=== PATIENT | female | born 2000 | race American Indian/Alaskan Native ===

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

== ENCOUNTER 2022-04-10 00:06 | Emergency (ER) | payer SELFPAY ==
[2022-04-10 00:55] VITALS: BP 158/82
--- NOTE | 2022-04-10 01:18 | Emergency Department Report ---
ED General Adult HPI - General Chief complaint: Psych Stated complaint: I am fine, I do not need to be be here Time Seen by Provider: 04/10/22 00:47 Source: patient, EMS ( EMS documentation not available at time of chart dictation ), RN notes reviewed Mode of arrival: Stretcher Limitations: No Limitations - History of Present Illness Initial comments: The patient was evaluated in the emergency department for symptoms described in the history of present illness. He/she was evaluated in the context of the global COVID-19 pandemic, which necessitated consideration that the patient might be at risk for infection with the virus that causes COVID-19. Institutional protocols and algorithms that pertain to the evaluation of patients at risk for COVID-19 are in a state of rapid change based on information released by regulatory bodies including the CDC and federal and state organizations. These policies and algorithms were followed during the patient's care in the emergency department. Please note that these policies, procedures and recommendations changed on a rapid basis. This patient is a cooperative 22-year-old female with a history of bipolar disorder, who states that she is not . The patient reports that earlier on today, she was evaluated by police department, for legal reasons, and she reports that she did not want to go to custodial. She reports that she started to hit her head on the car, essentially to avoid custodial. She is not homicidal or suicidal. She has not tried to overdose on anything. She is not experiencing hallucinations, and she does not have access to guns or firearms. She reports that she is not currently taking any antipsychotic medications. She denies physical pain at this time. She denies COVID symptoms. Please department called EMS, who then brought the patient here. The patient is not interested currently in speaking to a therapist or psychiatrist. She lives at home with family, and reports she can safely get home to family. She is asking to be discharged. -: Sudden Consistency: now resolved Improves with: none Worsens with: none Associated Symptoms: denies other symptoms - Related Data Previous Rx's Medication Instructions Recorded Last Taken Type QUEtiapine [SEROquel] 25 mg PO BID 30 Days #60 tablet 06/14/21 Unknown Rx levoFLOXacin [Levaquin TAB] 500 mg PO QDAY #10 tablet 06/14/21 Unknown Rx Allergies Allergy/AdvReac Type Severity Reaction Status Date / Time No Known Allergies Allergy Unverified 06/13/21 12:20 ED Review of Systems ROS: Stated complaint: CONTUSION TO FOREHEAD,SI Other details as noted in HPI Comment: All other systems reviewed and negative Psychiatric: anxiety. denies: auditory hallucinations, visual hallucinations, homicidal thoughts, suicidal thoughts ED Past Medical Hx - Past Medical History Previous Medical History?: Yes Hx Psychiatric Treatment: Yes (Schizophrenia, Depression) - Surgical History Past Surgical History?: No - Social History Smoking Status: Never Smoker Substance Use Type: Marijuana - Medications Home Medications: Home Medications Medication Instructions Recorded Confirmed Last Taken Type QUEtiapine [SEROquel] 25 mg PO BID 30 Days #60 tablet 06/14/21 Unknown Rx levoFLOXacin [Levaquin TAB] 500 mg PO QDAY #10 tablet 06/14/21 Unknown Rx ED Physical Exam - General Limitations: No Limitations General appearance: alert, anxious - Head Head exam: Present: normocephalic, other (Superficial forehead contusion noted) - Eye Eye exam: Present: normal appearance, EOMI - ENT ENT exam: Present: normal exam, normal orophraynx, mucous membranes moist, normal external ear exam - Neck Neck exam: Present: normal inspection, full ROM. Absent: tenderness, meningismus - Respiratory Respiratory exam: Present: normal lung sounds bilaterally. Absent: respiratory distress, wheezes, rales, rhonchi, stridor, decreased breath sounds - Cardiovascular Cardiovascular Exam: Present: regular rate, normal rhythm, normal heart sounds. Absent: bradycardia, tachycardia, irregular rhythm, systolic murmur, diastolic murmur, rubs, gallop - GI/Abdominal GI/Abdominal exam: Present: soft. Absent: distended, tenderness, guarding, rebound, rigid, pulsatile mass - Extremities Exam Extremities exam: Present: normal inspection, full ROM, other (2+ pulses noted in the bilateral upper and lower extremities. There is no palpable cord. negative Homans sign. Muscular compartments are soft. The pelvis is stable.). Absent: pedal edema, calf tenderness - Back Exam Back exam: Present: normal inspection, full ROM. Absent: tenderness, CVA tende rness (R), CVA tenderness (L), paraspinal tenderness, vertebral tenderness - Neurological Exam Neurological exam: Present: alert, oriented X3, normal gait, other (No facial droop. Tongue midline. Extraocular movements intact bilaterally. Facial sensation intact to light touch in V1, V2, V3 distribution bilaterally. 5 and a 5 strength in 4 extremities. Sensation intact to light touch in 4 extremities.). Absent: motor sensory deficit - Psychiatric Psychiatric exam: Present: anxious. Absent: depressed, flat affect, manic, homicidal ideation, suicidal ideation - Skin Skin exam: Present: warm, dry, abrasion ED Course Vital Signs 04/10/22 00:08 Temperature 98.9 F Pulse Rate 98 H Respiratory 18 Rate Blood Pressure 158/82 O2 Sat by Pulse 100 Oximetry ED Medical Decision Making - Medical Decision Making Vital Signs 04/10/22 00:08 Temperature 98.9 F Pulse Rate 98 H Respiratory 18 Rate Blood Pressure 158/82 O2 Sat by Pulse 100 Oximetry Differential diagnosis, including but not limited to: Anxiety, closed head injury, Medical screening examination, behavioral health screening examination Assessment and plan: 22-year-old female who is anxious, but cooperative, who is not homicidal or suicidal, who exhibits decision-making capacity and is free from distracting injury, patient is clinically sober at this time. The cervical spine is cleared through nexus and [place] c spine rule Essentially presenting for general evaluation with EMS. Patient was concerned about being arrested by police, and did not want to get arrested or have any legal trouble with police. EMS were called after the patient banged her head to avoid legal entanglements. While the patient is somewhat initially anxious in the emergency room, we are able to calm her down, de-escalate her, and have a reasonable interaction with this patient. The patient's is not currently seeking any medical evaluation. She is not in terested in speaking to a mental health professional or counselor. The patient does not meet criteria for advanced neuroimaging based off of the [place] head CT rule. The patient does not meet criteria for 1013 hold or involuntary confinement. At the moment, she does not appear to have an emergent medical or psychiatric condition present at this time. She may be discharged with outpatient follow- up. The patient is encouraged to return to the emergency room if she has any changes in her condition. She articulates understanding. All questions are answered. Critical care attestation.: If time is entered above; I have spent that time in minutes in the direct care of this critically ill patient, excluding procedure time. ED Disposition Clinical Impression: Closed head injury, Encounter for behavioral health screening, Encounter for medical screening examination Disposition: HOME / SELF CARE / HOMELESS Is pt being admited?: No Does the pt Need Aspirin: No Condition: Good Additional Instructions: Please follow-up with an outpatient mental health specialist within the next week. Avoid consumption of alcohol, tobacco, smoke products and recreational drugs. Please return to the emergency room right away with new pain, worsened pain, migration of pain, projectile vomiting, change in mental status, confusion, inability tolerate liquid feeds, new, worsened or different symptoms not present on the initial emergency room evaluation professional and Agency Contacts To help [facility] (06/03) [place] Crisis Line: Suicide Prevention Line: Crisis Text Line: Text ``START to 392414 Emergency: 911 Outpatient COMMUNITY Behavioral Health Resources: [facility]: [facility] [address] [place], [place] [address] [facility] [address] [place] [address] Monday thru Monday - 8am - 5pm Call to schedule an assessment for mental health and substance abuse programs [facility] Address: [address] [place] [address] Monday thru Monday- 7am-2pm [facility] Address: [address] [place] [address] Monday thru Monday: 8:30AM-5PM May take [id number] Tylenol or Motrin as needed for physical pain. Avoid participating in sports and athletics until cleared to do so by an outpatient primary care doctor. [facility] [Outside] - 3-5 Days Forms: Work/School Release Form(ED)
== END 2022-04-10 01:41 | disposition home or self-care (01) ==
LOC: ED 00:06
DX: S00.83XA Contusion of other part of head, initial encounter (principal); Z13.30 Encounter for screening examination for mental health and behavioral disorders, unspecified; F20.9 Schizophrenia, unspecified; F32.9 Major depressive disorder, single episode, unspecified; F12.90 Cannabis use, unspecified, uncomplicated; Z79.899 Other long term (current) drug therapy; W22.8XXA Striking against or struck by other objects, initial encounter; Y93.89 Activity, other specified; Y92.89 Other specified places as the place of occurrence of the external cause; Y99.8 Other external cause status
CPT/HCPCS: 99283